=== PATIENT | female | born 1955 | race Caucasian/White ===

== ENCOUNTER 2017-06-07 12:27 | Emergency (ER) | payer OTHER ==
[2017-06-07 13:02] VITALS: BP 131/83; PULSE 94; RESP 18; TEMP 98.2; O2SAT 97
--- NOTE | 2017-06-07 15:27 | EDPHY ---
H & P Stated Complaint: massive stressors/preob focusing/zimmer/emotionality/hx also of brain bleed 201 Time Seen by Provider: 06/07/17 15:27 - Personal History Current Tetanus/Diphtheria Vaccine: Unsure - Medical/Surgical History Hx Asthma: No Hx Chronic Respiratory Disease: No Hx Diabetes: No Hx Cardiac Disease: Yes Hx Renal Disease: No Hx Cirrhosis: No Hx Alcoholism: No Hx HIV/AIDS: No Hx Splenectomy or Spleen Trauma: No Other PMH: brain bleed(unknown) 2014 cardiac stents - Social History Smoking Status: Never smoked Constitutional: Initial Vital Signs Temperature (C) 36.8 C 06/07/17 12:58 Heart Rate 94 06/07/17 12:58 Respiratory Rate 18 06/07/17 12:58 Blood Pressure 131/83 H 06/07/17 12:58 O2 Sat (%) 97 06/07/17 12:58 O2 Delivery Mode Room Air Allergies/Adverse Reactions: Penicillins Allergy (Verified 06/07/17 12:57) Home Medications: Medication Instructions Recorded Atorvastatin Calcium 06/07/17 traZODone 06/07/17 Medical Decision Making - Diagnostics Imaging Results: Imaging Impressions Brain MRI 06/07/17 15:39 Impression: Several small punctate areas of prior hemorrhage described above. Suspect multiple cavernous angiomas vs amyloid deposition disease vs post traumatic injuries. Results called and discussed with Jose L Bethea MD, at 06/07/2017 17:27 ED Course/Re-evaluation: CHIEF COMPLAINT: Cognitive deficits, organization all deficits HISTORY OF PRESENT ILLNESS: 61-year-old female who several years ago fell skiing and had microscopic blood in her head which was only delineated on follow -up MRIs as hemosiderin deposits. There is no evidence of acute bleeding on CTs which were done serially. She was also on Plavix for stents at that time and she had a skiing injury as mention. Over the last several days to 2 weeks she has been very upset. This patient's son was committed to a psychiatric facility for suicidal ideations and bipolar disorder. The patient also has some Past Medical history regarding psychiatric disorder. The patient is quite distraught and does not know if her cognitive and organization deficits are secondary to a rebleed of her brain or just psychiatric overlay. She denies any trauma, fevers, chills, nausea, vomiting, headache, stiff neck, neurologic deficits REVIEW OF SYSTEMS: A 10 point review of systems was performed and is negative with the exception of the elements mentioned in the history of present illness. PHYSICAL EXAM: HR, BP, O2 Sat, RR. Temp noted General Appearance: Alert, well hydrated, appropriate, and non-toxic appearing. Head: Atraumatic without scalp tenderness or obvious injury Eyes: Pupils equal, round, reactive to light and accommodation, EOMI, no trauma , no injection. Ears: Clear bilaterally, no perforation, normal landmarks Nose: Atraumatic, no rhinorrhea, clear. Throat: There is no erythema or exudates, no lesions, normal tonsils, mucus membranes moist. Neck: Supple, 2+ carotid upstroke, nontender, no lymphadenopathy. Respiratory: No retractions, no distress, no wheezes, and no accessory muscle use. Lungs are clear to auscultation bilaterally. Cardiovascular: Regular rate and rhythm, no murmurs, rubs, or gallops. Bilateral carotid, radial, dorsalis pedis, and posterior tibial pulses intact. Good capillary refill all extremities. Gastrointestinal: Abdomen is soft, nontender, non-distended, no masses, no rebound, no guarding, no peritoneal signs. Musculoskeletal: Normal active ROM of all extremities, atraumatic. Neurological: Alert, appropriate, and interactive. The patient has normal DTRs and non-focal cranial nerves, motor, sensory, and cerebellar exam. Skin: No rashes, good turgor, no nodules on palpation. Past medical history: Psychiatric problems possibly bipolar, coronary artery disease Past surgical history: 6 coronary artery stents Family history: Coronary artery disease Social history: Single, employed, does not abuse tobacco drugs or alcohol DIAGNOSTICS/PROCEDURES/CRITICAL CARE TIME: Study: MRI of the: brain without contrast Indication: rule out causes for cognitive deficits Results: MRI scan of the brain was obtained. The results of the study are normal. The study was read by the radiologist, . I viewed the images myself on the PACS system. DIFFERENTIAL DIAGNOSIS: Acute reactive stress or psychosis, stress, PTSD, brain bleed, tumor, MEDICAL DECISION MAKING: Patient has no physical findings that are alarming. She seems quite normal to me from a cognitive standpoint. MRI is pending. Most likely this is some acute reactive psychosis. Departure - Departure Disposition: Home, Routine, Self-Care Clinical Impression: Stress reaction causing mixed disturbance of emotion and conduct Condition: Good Instructions: Stress (ED) Additional Instructions: 1. Follow up with your primary care provider for continued evaluation of your symptoms. Follow up with the mental health services provided. 2. Get plenty of rest, stay hydrated, and eat well. 3. Return to the Emergency Department for fever, chest pain, shortness of breath, increasing pain or other worsening of condition. Referrals: MILI ISIDRO PARISH WORKER [Primary Care Provider] - As per Instructions Report Scribed for: Jose L Bethea Report Scribed by: Darlene Reyes Date of Report: 06/07/17 Time of Report: 17:40
== END 2017-06-07 17:54 | disposition home or self-care (01) ==
DX: F43.9 Reaction to severe stress, unspecified (principal); F91.9 Conduct disorder, unspecified; Z95.5 Presence of coronary angioplasty implant and graft

== ENCOUNTER 2018-12-10 06:47 | Emergency (ER) | payer OTHER ==
--- NOTE | 2018-12-10 07:08 | EDPHY ---
H & P Time Seen by Provider: 12/10/18 06:56 HPI/ROS: CHIEF COMPLAINT: abdominal pain, nausea, vomiting HISTORY OF PRESENT ILLNESS: The patient is a 63-year-old female presents emergency department who has abdominal cramping since last night. His symptoms started around 12 30. The she initially developed some had a abdominal cramping. She then developed nausea and nonbloody emesis. She has had numerous episodes of diarrhea. The throughout the night she has had ongoing nausea and vomiting. She now has bloody mucus only when she has a bowel movement. She reports diffuse abdominal cramping. Patient states she has had 3 previous episodes similar to this but they have always resolved after short period of time. Patient denies fevers or chills. No recent foreign travel. Patient is not recently been on antibiotics. REVIEW OF SYSTEMS: 10 systems were reveiwed and are negative with the exception of the elements mentioned in the history of present illness. Past Medical/Surgical History: Includes coronary artery disease, psychiatric problems previously reported Past surgical history: 6 coronary artery stents Family history: Coronary artery disease Social history: The patient is a C diff researcher. Patient assures me she does not have C diff. Smoking Status: Never smoked Physical Exam: Vitals noted GENERAL: Well-appearing, in no acute distress, alert. HEENT: Eyes normal to inspection, normal pharynx, no signs of dehydration. NECK: Normal, supple. RESPIRATORY: Clear to auscultation bilaterally, no rales, rhonchi or wheezing. CVS: Regular rate and rhythm, no rubs, murmurs, or gallops. ABDOMEN: Soft, nontender, nondistended, no organomegaly. Benign BACK: Normal to inspection, no CVA tenderness. SKIN: Normal color, no rash, warm, dry. No pallor. EXTREMITIES: No pedal edema, no calf tenderness, no Homans sign or cords, no joint swelling. NEURO/PSYCH: Alert and oriented, normal mood and affect, normal motor sensory exam. Constitutional: Initial Vital Signs Temperature (C) 36.6 C 12/10/18 06:52 Heart Rate 96 12/10/18 06:52 Respiratory Rate 18 12/10/18 06:52 Blood Pressure 107/63 12/10/18 06:52 O2 Sat (%) 99 12/10/18 06:52 O2 Delivery Mode Room Air Allergies/Adverse Reactions: Penicillins Allergy (Verified 06/07/17 12:57) Home Medications: Medication Instructions Recorded Atorvastatin Calcium 06/07/17 Ondansetron Odt [Zofran Odt 4 mg 4 mg PO Q4PRN PRN #7 tab 12/10/18 (*)] Medical Decision Making ED Course/Re-evaluation: In the emergency department I discussed possible etiologies with the patient. I answered all her questions. IV was placed. Patient was given 1 L of normal saline for hydration. She is given Zofran 4 mg IV for nausea. Laboratory studies and CT were ordered. Patient's CBC and chemistry unremarkable. Lipase was minimally elevated at 300s. CT of the abdomen pelvis: Please refer the dictated report by Dr. Hartley. No acute disease noted. Patient has a small splenic cyst. I discussed the results with the patient. I answered all her questions. On recheck her abdomen was soft, nontender nondistended. She had no focal findings. Patient still complained of mild cramping but was improved. She is given Toradol 30 mg IV. UA: Showed 5-10 red cells. The recheck the patient. She was doing well. She had no new complaints. Her abdomen was soft and nontender. She is given warnings prior to leaving. She is given a prescription of Zofran on discharge. Differential Diagnosis: My differential includes but is not limited to small-bowel obstruction, perforation, cholecystitis, cholangitis, pancreatitis, gastroenteritis, mass, malignancy, infectious diarrhea - Data Points Laboratory Results: Laboratory Results 12/10/18 07:17 12/10/18 07:17 12/10/18 12/10/18 12/10/18 08:45 07:17 07:17 WBC 9.26 10^3/uL 10^3/uL (3.80-9.50) RBC 4.79 10^6/uL 10^6/uL (4.18-5.33) Hgb 14.2 g/dL g/dL (12.6-16.3) Hct 42.5 % % (38.0-47.0) MCV 88.7 fL fL (81.5-99.8) MCH 29.6 pg pg (27.9-34.1) MCHC 33.4 g/dL g/dL (32.4-36.7) RDW 13.2 % % (11.5-15.2) Plt Count 209 10^3/uL 10^3/uL (150-400) MPV 10.6 fL fL (8.7-11.7) Neut % (Auto) 87.1 % H % (39.3-74.2) Lymph % (Auto) 7.9 % L % (15.0-45.0) Butts % (Auto) 4.3 % L % (4.5-13.0) Eos % (Auto) 0.0 % L % (0.6-7.6) Baso % (Auto) 0.3 % % (0.3-1.7) Nucleat RBC Rel Count 0.0 % % (0.0-0.2) Absolute Neuts (auto) 8.06 10^3/uL H 10^3/uL (1.70-6.50) Absolute Lymphs (auto) 0.73 10^3/uL L 10^3/uL (1.00-3.00) Absolute Monos (auto) 0.40 10^3/uL 10^3/uL (0.30-0.80) Absolute Eos (auto) 0.00 10^3/uL L 10^3/uL (0.03-0.40) Absolute Basos (auto) 0.03 10^3/uL 10^3/uL (0.02-0.10) Absolute Nucleated RBC 0.00 10^3/uL 10^3/uL (0-0.01) Immature Gran % 0.4 % % (0.0-1.1) Immature Gran # 0.04 10^3/uL 10^3/uL (0.00-0.10) Sodium 142 mEq/L mEq/L (135-145) Potassium 3.7 mEq/L mEq/L (3.5-5.2) Chloride 106 mEq/L mEq/L (97-110) Carbon Dioxide 26 mEq/l mEq/l (22-31) Anion Gap 10 mEq/L mEq/L (6-14) BUN 19 mg/dL mg/dL (7-23) Creatinine 0.8 mg/dL mg/dL (0.6-1.0) Estimated GFR > 60 Glucose 116 mg/dL H mg/dL (70-100) Calcium 9.5 mg/dL mg/dL (8.5-10.4) Total Bilirubin 0.7 mg/dL mg/dL (0.1-1.4) Conjugated Bilirubin 0.3 mg/dL mg/dL (0.0-0.5) Unconjugated Bilirubin 0.4 mg/dL mg/dL (0.0-1.1) AST 31 IU/L IU/L (14-46) ALT 42 IU/L IU/L (9-52) Alkaline Phosphatase 73 IU/L IU/L (38-126) Total Protein 6.8 g/dL g/dL (6.3-8.2) Albumin 4.4 g/dL g/dL (3.5-5.0) Lipase 345 IU/L H IU/L (23-300) Urine Color PALE YELLOW Urine Appearance CLEAR Urine pH 8.0 H (5.0-7.5) Ur Specific [place] 1.020 (1.002-1.030) Urine Protein NEGATIVE (NEGATIVE) Urine Ketones TRACE H (NEGATIVE) Urine Blood 1+ H (NEGATIVE) Urine Nitrate NEGATIVE (NEGATIVE) Urine Bilirubin NEGATIVE (NEGATIVE) Urine Urobilinogen NEGATIVE EU EU (0.2-1.0) Ur Leukocyte Esterase NEGATIVE (NEGATIVE) Urine RBC 5-10 /hpf H /hpf (0-3) Urine WBC 1-3 /hpf /hpf (0-3) Ur Epithelial Cells NONE SEEN /lpf /lpf (NONE-1+) Urine Glucose NEGATIVE (NEGATIVE) Medications Given: Discontinued Medications Sodium Chloride (Ns) 1,000 mls @ 0 mls/hr IV EDNOW ONE; Wide Open PRN Reason: Protocol Stop: 12/10/18 07:16 Last Admin: 12/10/18 07:17 Dose: 1,000 mls Ketorolac Tromethamine (Toradol) 30 mg IM EDNOW ONE Stop: 12/10/18 09:12 Last Admin: 12/10/18 09:17 Dose: 30 mg Ondansetron HCl (Zofran) 4 mg IVP EDNOW ONE Stop: 12/10/18 07:16 Last Admin: 12/10/18 07:21 Dose: 4 mg Departure - Departure Disposition: Home, Routine, Self-Care Clinical Impression: Abdominal pain Qualifiers: Abdominal location: generalized Qualified Code(s): R10.84 - Generalized abdominal pain Vomiting Qualifiers: Vomiting type: unspecified Vomiting Intractability: non-intractable Nausea presence: without nausea Qualified Code(s): R11.11 - Vomiting without nausea Condition: Good Instructions: Acute Nausea and Vomiting (ED), Abdominal Pain (ED) Additional Instructions: Return with increasing pain, repeated vomiting or any other concerns. Your CT scan did not show any signs of obstruction or other acute abnormality. You need close follow-up with Gastroenterology. This was further bloody stool. Even if you improved you need follow-up appointment. Call to make an appointment on Wednesday. Referrals: MILI ISIDRO NP [Primary Care Provider] - 2-3 days, if not improved Pappas,Vita Oliver MD [Medical Doctor] - 5-7 days, call for appt. Prescriptions: Ondansetron Odt [Zofran Odt 4 mg (*)] 4 mg PO Q4PRN PRN #7 tab PRN Reason: For Nausea & Vomiting
[2018-12-10] MEDS ORDERED: NS 1,000 ML IV ONE (07:15)
[2018-12-10] MEDS ORDERED: ONDANSETRON 4 MG/2 ML VIAL IVP ONE (07:15)
[2018-12-10 07:47] LABS: PLATELET COUNT 209 10^3/uL (150-400)
[2018-12-10] MEDS ORDERED: IOHEXOL 300 mgI/ML (OMNIPAQUE) 150 ML BTL IV ONE (08:15)
[2018-12-10] MEDS ORDERED: KETOROLAC 30 MG/1 ML SDV IM ONE (09:11)
[2018-12-10 10:01] VITALS: BP 126/60
== END 2018-12-10 10:02 | disposition home or self-care (01) ==
DX: R10.84 Generalized abdominal pain (principal); R11.11 Vomiting without nausea; E86.9 Volume depletion, unspecified
CPT/HCPCS: 96374; J1885; J2405; Q9967

== ENCOUNTER 2018-12-10 19:29 | Observation (INO) | payer OTHER ==
[2018-12-10] MEDS ORDERED: DICYCLOMINE 10 MG CAP PO ONE (20:03)
--- NOTE | 2018-12-10 20:06 | EDPHY ---
HPI/HX/ROS/PE/MDM Narrative: CHIEF COMPLAINT: Abdominal cramping, bloody diarrhea HPI: The patient is a 63 y/o female who returns for the second time today complaining of recurrent abdominal cramping and diarrhea. She was evaluated earlier today for the same symptoms, which first began around midnight today. She had lab work performed and an abdominal CT, which were normal. Her symptoms improved with Zofran, fluids, and Toradol and she was discharged home. She was able to sleep most of the day and this evening, but shortly after eating tonight her abdominal cramping recurred and was promptly followed by "explosive mucus-y and bloody diarrhea." She felt unable to go through another night of these symptoms at home and returned to the ED. She has not vomited since earlier this morning. She's had similar symptoms in the past that she says usually resolve after one episode of diarrhea. She has never seen a GI for these symptoms. She did have a colonoscopy 2 years ago that showed a tortuous colon and had some polyps removed. She denies fever, urinary symptoms. No recent travel or antibiotic use. REVIEW OF SYSTEMS: Aside from elements discussed in the HPI, a comprehensive 10-point review of systems was reviewed and is negative. PMH: CAD with 6 stents, psychiatric problems SOCIAL HISTORY: at bedside. Nonsmoker. 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 Prior medical records reviewed including ED visit earlier today, 12/10/18. PHYSICAL EXAM: General:Patient is alert, in no acute distress. ENT:Eyes are normal to inspection. ENT inspection normal. Neck: Normal inspection. Full range of motion. Respiratory:No respiratory distress. Breath sounds normal bilaterally. Cardiovascular: Regular rate and rhythm. Strong peripheral pulses. Normal cap refill. Abdomen:The abdomen is nontender to palpation. There are no peritoneal signs. Back: Normal to inspection. No tenderness to palpation. Skin: Normal color. No rash. Warm and dry. Extremities: Normal appearance. Full range of motion. Neuro: Oriented x3. Normal motor function. Normal sensory function. (Dimas Reardon) ED Course: This is a 63 y/o female who presents with recurrent abdominal cramping and bloody diarrhea for the last day. Abdomen is benign. Prior work up including labs and abdominal CT were negative. Plan for GI pathogen panel and 20mg PO Bentyl for symptoms. 2100: Patient care signed out to Dr. Chang at shift change pending stool sample and successful symptomatic management. (Dimas Raerdon) MDM: Patient's care was signed out to me at 9:[address] Reardon. She received a Bentyl pill. Stool sample is in the lab for C diff and stool pathogen. Patient continues to have abdominal cramping. Apparently earlier today she re- she received a shot of Toradol. This seemed to help. She requests another Toradol shot Re-evaluation at 10:45 p.m. Patient continues to have cramping. She is concerned about going home because every time she tries to drink she has mucousy diarrhea. Stool cultures are pending but will be run until tomorrow morning. I discussed the case with , hospitalist, who agrees to the admission Medical decision making patient is mildly dehydrated. She likely has C difficile (Guru Chang) - Data Points Laboratory Results: 12/10/18 20:15 C. difficile Tox (PCR) Pending Medications Given: Discontinued Medications Dicyclomine HCl (Bentyl) 20 mg PO EDNOW ONE Stop: 12/10/18 20:04 Last Admin: 12/10/18 20:07 Dose: 20 mg General Time Seen by Provider: 12/10/18 19:38 Initial Vital Signs: Initial Vital Signs Temperature (C) 37 C 12/10/18 19:32 Heart Rate 91 12/10/18 19:32 Respiratory Rate 16 12/10/18 19:32 Blood Pressure 123/70 H 12/10/18 19:32 O2 Sat (%) 95 12/10/18 19:32 O2 Delivery Mode Room Air Allergies/Adverse Reactions: Penicillins Allergy (Verified 06/07/17 12:57) Home Medications: Medication Instructions Recorded Atorvastatin Calcium 06/07/17 Ondansetron Odt [Zofran Odt 4 mg 4 mg PO Q4PRN PRN #7 tab 12/10/18 (*)] Departure - Departure Disposition: [facility] Inpatient Acute Clinical Impression: Abdominal pain Qualifiers: Abdominal location: generalized Qualified Code(s): R10.84 - Generalized abdominal pain Condition: Fair Referrals: MILI ISIDRO, [employer] MANAGER [Primary Care Provider] - As per Instructions Report Scribed for: Dimas Reardon Report Scribed by: Светлана Keating Date of Report: 12/10/18 Time of Report: 20:12 Physician Review and Approval Statement: Portions of this note were transcribed by an ED scribe. I personally performed the history, physical exam, and medical decision making; and confirm the accuracy of the information in the transcribed note.
[2018-12-10] MEDS ORDERED: KETOROLAC 30 MG/1 ML SDV IM ONE (21:53)
[2018-12-10] MEDS ORDERED: NS 1,000 ML IV ONE (22:57)
[2018-12-10] MEDS ORDERED: KETOROLAC 15 MG/1 ML SDV IVP ONE (23:27)
[2018-12-10] MEDS ORDERED: ACETAMINOPHEN 325 MG TAB PO PRN (23:34)
[2018-12-10] MEDS ORDERED: ONDANSETRON DISINTEGRATING 4 MG TAB PO PRN (23:34)
[2018-12-10] MEDS ORDERED: ONDANSETRON 4 MG/2 ML VIAL IVP PRN (23:34)
[2018-12-10] MEDS ORDERED: HYDROCODONE/APAP 5/325 TAB PO PRN (23:34)
[2018-12-10] MEDS ORDERED: NS 1,000 ML IV SCH (23:45)
--- NOTE | 2018-12-10 23:51 | PDGENHP ---
History and Physical - Chief Complaint Abdominal cramping, diarrhea - History of Present Illness Source-patient provides history appears reliable. EMR was reviewed and case discussed with ED provider. HPI-is a pleasant 60-year-old female with past medical history significant for CAD, HTN who presents emergency department today with complaints of nearly 24 hr of abdominal cramping and postprandial mucoid diarrhea. Patient reports that she has had poor oral intake since onset of her symptoms approximately midnight. She is reporting bright red blood per rectum with bowel movements. She denies any fevers but has been having increasing chills worsened with IV fluids. Patient denies any recent travel. Patient had a colonoscopy approximately 2 years ago that was significant only for polyps. 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 She denies any known sick contact exposures. History Information - Allergies/Home Medication List Allergies/Adverse Reactions: Penicillins Allergy (Verified 06/07/17 12:57) Home Medications: Atorvastatin Calcium 06/07/17 [Last Taken Unknown] I have personally reviewed and updated: family history, medical history, social history, surgical history - Past Medical History Additional medical history: hx cad s/p stenting - Surgical History Additional surgical history: cataract extraction with lens placement. no abdominal surgeries - Family History Positive for: non-pertinent - Social History Smoking Status: Never smoked Alcohol Use: None Drug Use: None Additional social history: Med. Lives with . Patient is employed and works in development of C diff treatment. Review of Systems Review of Systems: ROS: 10pt was reviewed & negative except for what was stated in HPI & below Physical Exam Physical Exam: Selected Entries 12/10/18 19:32 Heart Rate 91 Respiratory 16 Rate O2 Sat (%) 95 Temperature (C) 37 C Blood Pressure 123/70 H Mean Arterial 87 Pressure (MAP) O2 Delivery Room Air Mode Temperature Oral Source Temp Pulse Resp BP Pulse Ox 36.6 C 75 16 116/65 94 12/10/18 23:18 12/10/18 23:18 12/10/18 23:18 12/10/18 23:18 12/10/18 23:18 Constitutional: no apparent distress, other (NAD. Patient is lying comfortably in bed awake.) Eyes: PERRL (Lens reflex appreciated bilaterally.), anicteric sclera, EOMI, scleral injection Ears, Nose, Mouth, Throat: dry mucous membranes, other (No nasal discharge.), No poor dentition Cardiovascular: regular rate and rhythym, no murmur, rub, or gallop, No edema Peripheral Pulses: 2+: dorsalis-pedis (R), dorsalis-pedis (L) Respiratory: no respiratory distress, no rales or rhonchi, clear to auscultation , No respiratory distress Gastrointestinal: tenderness (Mild discomfort to light palpation.), other ( Hypoactive bowel sounds.), No guarding, No rebound, No distension Genitourinary: no bladder tenderness, No soto in urethra Skin: warm, normal color, no rashes or abrasions Musculoskeletal: full muscle strength, other (Grossly normal musculoskeletal), No generalized weakness Neurologic: AAOx3, sensation intact bilaterally, other (Grossly nonfocal exam.) , No facial droop Psychiatric: interacting appropriately, not anxious, not encephalopathic, thought process linear Lab Data & Imaging Review Selected Entries 12/10/18 19:32 Heart Rate 91 Respiratory 16 Rate O2 Sat (%) 95 Temperature (C) 37 C Blood Pressure 123/70 H Mean Arterial 87 Pressure (MAP) O2 Delivery Room Air Mode Temperature Oral Source Laboratory Tests 12/10/18 12/10/18 07:17 07:17 WBC 9.26 RBC 4.79 Hgb 14.2 Hct 42.5 MCV 88.7 MCH 29.6 MCHC 33.4 RDW 13.2 Plt Count 209 MPV 10.6 Neut % (Auto) 87.1 H Lymph % (Auto) 7.9 L Swisher % (Auto) 4.3 L Eos % (Auto) 0.0 L Baso % (Auto) 0.3 Nucleat RBC Rel Count 0.0 Absolute Neuts (auto) 8.06 H Absolute Lymphs (auto) 0.73 L Absolute Monos (auto) 0.40 Absolute Eos (auto) 0.00 L Absolute Basos (auto) 0.03 Absolute Nucleated RBC 0.00 Immature Gran % 0.4 Immature Gran # 0.04 Sodium 142 Potassium 3.7 Chloride 106 Carbon Dioxide 26 Anion Gap 10 BUN 19 Creatinine 0.8 Estimated GFR > 60 Glucose 116 H Calcium 9.5 Total Bilirubin 0.7 Conjugated Bilirubin 0.3 Unconjugated Bilirubin 0.4 AST 31 ALT 42 Alkaline Phosphatase 73 Total Protein 6.8 Albumin 4.4 Lipase 345 H Imaging Review: CT Scan of the Abdomen and Pelvis (With Contrast) Clinical Indications: Abdominal pain. Technique: 85 mL of Omnipaque 300 were given intravenously by machine power injection. Multidetector helical CT imaging was performed from the diaphragm to the symphysis pubis. Dose reduction techniques were utilized. Findings CT Abdomen: Lung bases are clear. A small pericardial effusion is present. Cyst is identified within the anterior segment of the right hepatic lobe. No dominant hepatic mass. The gallbladder is present. There is a cortical cyst involving the lateral margin of the spleen. The pancreas enhances normally. Kidneys enhance symmetrically. Adrenal glands are normal. Visualized small bowel loops appear unremarkable. No peritoneal free fluid or air. Atherosclerotic calcifications are present within the abdominal aorta. CT Pelvis: No masses or free fluid. Impression: 1. Trace pericardial effusion. 2. Hepatic and splenic cysts. 3. Aortic atherosclerosis. 4. No evidence of small bowel distention or peritoneal free fluid. Results called to Dr. Chica Barraza at 8:40 a.m. Visualized and Interpreted EKG results: Yes Assessment & Plan Assessment: is a pleasant 60-year-old female with past medical history significant for CAD, HTN who presents emergency department today with complaints of nearly 24 hr of abdominal cramping and postprandial mucoid diarrhea #Abdominal pain (Acute)/diarrhea - patient reports her symptoms are worsened postprandially. She has had poor oral intake all day by her report feels quite dehydrated. She is concerned that she will not be able to maintain her hydration if discharged home. She does have positive known exposures potentially to C diff however she is reporting that she is working with donor specimens and has no known direct exposures to active C diff. Patient does have a mild neutrophilia. Her CT scan is not revealing for any evidence of colitis on imaging. C diff PCR/GI panel is pending and will be available in the morning. Patient lipase minimally above normal but less than 3 times upper limit of normal. No suspicion for pancreatitis at this time. #Rectal bleeding - patient reports bright red blood per rectum with any bowel movements. She denies any tenesmus or rectal pain. She reports a colonoscopy 2 years ago that was significant for polyps. ddx likely an internal hemorrhoid versus diverticular versus less likely ulceration or mass. Monitor H&H. GI saw PCR pain studies are pending. #Dehydration - continue with IV fluids overnight. Encourage oral intake as tolerated. #CAD - continue patient's statin as tolerated. FEN - continue IV fluids overnight. Advance diet as tolerated. Electrolyte monitoring replacement if needed. Cor status-full PPX-SCDs. Holding anticoagulation in setting of complaint of rectal bleeding. Disposition-patient admitted observation status on med surge floor pending GI studies and IV fluid hydration.
[2018-12-11] MEDS ORDERED: diphenhydrAMINE 25 MG CAP PO PRN (00:27)
[2018-12-11 05:02] LABS: PLATELET COUNT 151 10^3/uL (150-400)
[2018-12-11 07:46] VITALS: BP 116/61
--- NOTE | 2018-12-11 10:29 | PDDCSUM ---
Discharge Summary Discharge Summary: Dates of service 12/10/18-12/11/18 Consultations: none Procedures: abdominal CT Hospital course by problem: 60-year-old female with past medical history significant for CAD, HTN who presents emergency department today with complaints of nearly 24 hr of abdominal cramping and postprandial mucoid diarrhea #Abdominal pain (Acute)/diarrhea - patient notes that this is a chronic, recurrent issue for her. She will frequently have GI discomfort followed by ' explosive diarrhea' and resolution of her abdominal pain. She notes she came to ER this time because the diarrhea did not resolve her pain. She has never had this evaluated by an MD because she thought this was 'just how she is', she has had a colonoscopy in the last 2 years unremarkable other than polyps. Suspected IBS, patient will f/u with GI after discharge, already has referral to Dr. riojas. #Rectal bleeding - BRBPR at home with BM, no recurrence. Slight drop in h/h. Given resolution ok to defer any endoscopic evaluation to the OP setting, as above. #Dehydration - tolerating po now, IVF given overnight #CAD - continue statin, no acute issues FEN - continue IV fluids overnight. Advance diet as tolerated. Electrolyte monitoring replacement if needed. Cor status-full Dispo: dc home f/u with PCP and GI doctor Items for follow up: evaluation of rectal bleeding, evaluation of recurrent abdominal pain and diarrhea > 35 min spent in dc more than half in counseling of patient
--- NOTE | 2018-12-11 10:47 | ASMTLACE ---
LACE Length of stay for Answers: Less than 1 day current admission Acuity / Level of Answers: Yes Care: Did the patient have an inpatient admission? Comorbidities - select Answers: Coronary Artery Disease all that apply Other Notes: Prior stenting, polyps # of Emergency department Answers: 1-2 visits in the last 6 months Score: 7 Date Signed: 12/11/2018 10:47 AM Electronically Signed By:Ena Alatorre RN
--- NOTE | 2018-12-11 10:54 | ASDISCHSUM ---
Discharge Information Plan Status:Home with No Needs Medically Cleared to Leave:12/10/2018 Discharge Date:12/10/2018 CM D/C Disposition:Home, Routine, Self-Care ADT D/C Disposition:Home, Routine, Self-Care Projected Discharge Date:12/10/2018 Transportation at D/C:Family Discharge Delay Reason: Follow-Up Date:12/10/2018 Discharge Slot:1 - 8:01 am - 12:00 noon Final Diagnosis:Abdominal pain, dehydration, rectal bleeding, CAD w/ prior stenting Placement Information Patient Contact Information Contact Name:MAHSA Relationship: Address:[address] Work Phone: [facility]:[employer] Alternate Phone: [facility]/Zip Code:[place] [address] Email: Financial Information Financial Class:HMO and PPO Plans Primary Plan Desc:[employer] PPO POS HMO SIG ADM Primary Plan Number:[id number] Secondary Plan Desc: Secondary Plan Number: Assessment Information LACE LACE Length of stay for Answers: Less than 1 day current admission Acuity / Level of Answers: Yes Care: Did the patient have an inpatient admission? Comorbidities - select Answers: Coronary Artery Disease all that apply Other Notes: Prior stenting, polyps # of Emergency department Answers: 1-2 visits in the last 6 months Score: 7 Date Signed: 12/11/2018 10:47 AM Electronically Signed By:Ena Aaltorre RN [facility] Progress Note CM Note CM Note Notes: Reviewed chart. Pt presented to the Emergency Department with abdominal pain, dehydration. History includes coronary artery disease, with prior stenting, cataract extension with lens placement, HTN, polyps. Pt is and lives with her in [place]. Per MD, pt to discharge home independently with family support and no identified needs. Pt to follow up as directed. No IM/DEL VALLE forms signed, not applicable. CM available for any further issues or concerns. Discharge Plan: Home independently Date Signed: 12/11/2018 10:52 AM Electronically Signed By:Ena Alatorre RN Intervention Information
[2018-12-11] MEDS ORDERED: ATORVASTATIN CALCIUM 40 MG TAB PO SCH (21:00)
== END 2018-12-11 11:27 | disposition home or self-care (01) ==
LOC: INTOOBSV 22:59 → F3E 12-11 00:02
PROVIDERS: ADMIT Family Medicine; ATTEND Internal Medicine
DX: R10.84 Generalized abdominal pain (principal); R19.7 Diarrhea, unspecified; K62.5 Hemorrhage of anus and rectum; E86.0 Dehydration; I25.10 Atherosclerotic heart disease of native coronary artery without angina pectoris; I10 Essential (primary) hypertension
CPT/HCPCS: G0378 ×2; J1885

== ENCOUNTER → 2019-01-16 | Outpatient (CLI) | payer OTHER | LOC: FIMAGING 10:31 | PROVIDERS: ATTEND Nurse Practitioner Family | DX: N28.89 Other specified disorders of kidney and ureter (principal); I25.42 Coronary artery dissection; R74.8 Abnormal levels of other serum enzymes ==

== ENCOUNTER → 2019-01-18 | Outpatient (CLI) | payer OTHER | LOC: FIMAGING 09:44 | PROVIDERS: ATTEND Nurse Practitioner Family | DX: I21.4 Non-ST elevation (NSTEMI) myocardial infarction (principal); I25.42 Coronary artery dissection; R74.8 Abnormal levels of other serum enzymes ==